=== PATIENT | female | born 1975 | race African-American/Black ===

== ENCOUNTER 2016-11-16 10:34 | Emergency (ER) | payer MEDICAID ==
[~2016-11-16] VITALS: Ht 162.6 cm; Wt 117.9 kg
[2016-11-16 11:23] LABS: Urine Bilirubin Negative (Negative); Urine Blood Negative /uL (Negative); Urine Color Yellow (Yellow); Urine Glucose Normal (Normal); Urine Ketone Negative (Negative); Urine Nitrite Negative (Negative); Urine RBC <1 /hpf (0 - 4); Urine Squamous Epithelial Cell FEW /hpf (<5); Urine Urobilinogen Normal (Negative); Urine pH 5.5 (5.0-8.0)
[2016-11-16 11:28] LABS: Basophils # (auto) 0.1 uL; Basophils % (auto) 0.5 % (0.0-2.0); DEFINITIVE VIEW TRANSMISSION; Eosinophils # (auto) 0.2 uL; Eosinophils % (auto) 1.8 % (0.0-7.0); Hemoglobin 8.7 g/dL (12.2-16.2); Lymphocytes # (auto) 2.3 uL; Lymphocytes % (auto) 24.5 % (10.0-50.0); Mean Corpuscular Hemoglobin 24.7 pg (28.0-32.0); Mean Corpuscular Hgb Conc. 31.1 g/dL (32.0-36.0); Mean Corpuscular Volume 79.4 fL (80.0-100.0); Mean Platelet Volume 8.1 fL (7.4-10.4); Monocytes # (auto) 0.5 uL; Monocytes % (auto) 4.9 % (0.0-12.0); Neutrophils # (auto) 6.4 uL; Neutrophils % (auto) 68.3 % (37.0-80.0); Platelet Count (auto) 382 10^3/uL (140-450); SUSPECT VIEW TRANSMISSION; White Blood Cell 9.4 10^3/uL (4.4-10.8)
[2016-11-16 11:48] LABS: Albumin 3.6 g/dL (3.4-5.0); Alkaline Phosphatase 157 U/L (45-117); Anion Gap 12 (5-15); Aspartate Aminotransferase 33 U/L (15-37); BUN/Creatinine Ratio 11.6; Bilirubin, Total 0.8 mg/dL (0.2-1.0); Blood Urea Nitrogen 13 mg/dL (7-18); Carbon Dioxide 24 mmol/L (21-32); Chloride 103 mmol/L (98-107); GFR African American 68 mL/min; GFR Non-African American 56 mL/min; Glucose 114 mg/dL (74-106); Potassium 3.7 mmol/L (3.5-5.1); Sodium 139 mmol/L (136-145); Total Protein 7.8 g/dL (6.4-8.2)
[2016-11-16] MEDS ORDERED: ALPRAZolam 0.5 MG TAB PO ONE (12:00)
[2016-11-16 12:14] LABS: Platelet Estimate Adequate
[2016-11-16 12:15] LABS: Anisocytosis Moderate; Hypochromia Slight; Large Platelets FEW; Ovalocytes FEW; Stomatocytes Moderate
[2016-11-16 12:29] LABS: Acetaminophen < 2.0 ug/mL (10-30); Salicylate < 1.7 mg/dL (2.8-20.0)
[2016-11-16] MEDS ORDERED: cloNIDine HCL 0.1 MG TAB PO ONE (17:45)
[2016-11-16] MEDS: ZOLPIDEM TARTRATE 5 MG TAB PO SCH (21:21)
[2016-11-17] MEDS ORDERED: IBUPROFEN 600 MG TAB PO ONE (07:27)
[2016-11-17] MEDS ORDERED: IBUPROFEN 600 MG TAB PO PRN ×2 (07:30→12:01)
[2016-11-17] MEDS: amLODIPine BESYLATE 5 MG TAB PO SCH (10:00)
[2016-11-17] MEDS: LOSARTAN POTASSIUM 50 MG TAB PO SCH (10:00)
[2016-11-17] MEDS ORDERED: CYCLOBENZAPRINE HCL 10 MG TAB ONE (11:28)
[2016-11-17] MEDS ORDERED: SERTRALINE HCL 50 MG TAB ONE (11:29)
[2016-11-17] MEDS ORDERED: CYCLOBENZAPRINE HCL 10 MG TAB PO ONE (11:30)
[2016-11-17] MEDS ORDERED: SERTRALINE HCL 50 MG TAB PO ONE (11:30)
[2016-11-17] MEDS ORDERED: ACETAMINOPHEN 325 MG TAB PO ONE (12:00)
[2016-11-17] MEDS ORDERED: ACETAMINOPHEN 325 MG TAB PO PRN (12:00)
[2016-11-17] MEDS: ALPRAZolam 0.5 MG TAB PO PRN (18:16)
[2016-11-17] MEDS: ZOLPIDEM TARTRATE 5 MG TAB PO SCH (22:00)
[2016-11-18] MEDS: CYCLOBENZAPRINE HCL 10 MG TAB PO SCH (10:00)
[2016-11-18] MEDS: amLODIPine BESYLATE 5 MG TAB PO SCH (10:00)
[2016-11-18] MEDS: LOSARTAN POTASSIUM 50 MG TAB PO SCH (10:00)
[2016-11-18] MEDS: SERTRALINE HCL 50 MG TAB PO SCH (11:06)
[2016-11-18 12:36] LABS: Basophils # (auto) 0 uL; Basophils % (auto) 0.6 % (0.0-2.0); DEFINITIVE VIEW TRANSMISSION; Eosinophils # (auto) 0.2 uL; Eosinophils % (auto) 3.6 % (0.0-7.0); Hematocrit 25.8 % (36.0-46.0); Lymphocytes # (auto) 1.6 uL; Lymphocytes % (auto) 27.6 % (10.0-50.0); Mean Corpuscular Volume 80.8 fL (80.0-100.0); Mean Platelet Volume 7.8 fL (7.4-10.4); Monocytes # (auto) 0.5 uL; Monocytes % (auto) 8.9 % (0.0-12.0); Neutrophils # (auto) 3.4 uL; Neutrophils % (auto) 59.3 % (37.0-80.0); Platelet Count (auto) 378 10^3/uL (140-450); SUSPECT VIEW TRANSMISSION; White Blood Cell 5.8 10^3/uL (4.4-10.8)
[2016-11-18 12:59] LABS: BUN/Creatinine Ratio 12.9; Bilirubin, Total 0.4 mg/dL (0.2-1.0); Calcium 8.5 mg/dL (8.5-10.1); Potassium 3.9 mmol/L (3.5-5.1); Total Protein 6.6 g/dL (6.4-8.2)
[2016-11-18 13:01] LABS: Red Cell Distribution Width 26.5 % (11.6-16.0)
[2016-11-18 13:46] LABS: Platelet Estimate Adequate
[2016-11-18 13:47] LABS: Anisocytosis Moderate; Hypochromia Slight
[2016-11-18] MEDS: FERROUS SULFATE 325 MG TAB PO SCH (16:09)
[2016-11-18] MEDS: ALPRAZolam 0.5 MG TAB PO PRN (16:13)
[2016-11-18] MEDS: ZOLPIDEM TARTRATE 5 MG TAB PO SCH (23:09)
[2016-11-18] MEDS ORDERED: ZOLPIDEM TARTRATE 5 MG TAB ONE (23:12)
[2016-11-19 09:49] VITALS: BP 136/80
[2016-11-19] MEDS ORDERED: LOSARTAN POTASSIUM 50 MG TAB ONE (10:08)
[2016-11-19] MEDS ORDERED: amLODIPine BESYLATE 5 MG TAB ONE (10:08)
[2016-11-19] MEDS ORDERED: FERROUS SULFATE 325 MG TAB PO ONE (10:08)
[2016-11-19] MEDS ORDERED: CYCLOBENZAPRINE HCL 10 MG TAB ONE (10:08)
[2016-11-19] MEDS ORDERED: SERTRALINE HCL 50 MG TAB ONE (10:10)
[2016-11-19] MEDS: FERROUS SULFATE 325 MG TAB PO SCH (10:26)
[2016-11-19] MEDS: CYCLOBENZAPRINE HCL 10 MG TAB PO SCH (10:26)
[2016-11-19] MEDS: SERTRALINE HCL 50 MG TAB PO SCH (10:26)
[2016-11-19] MEDS: LOSARTAN POTASSIUM 50 MG TAB PO SCH (10:26)
[2016-11-19] MEDS: amLODIPine BESYLATE 5 MG TAB PO SCH (10:27)
[2016-11-19] MEDS ORDERED: ALPRAZolam 0.5 MG TAB ONE (14:05)
[2016-11-19] MEDS: ALPRAZolam 0.5 MG TAB PO PRN (14:12)
== END 2016-11-19 03:02 | disposition home or self-care (01) ==
LOC: ER 10:41
DX: R45.851 Suicidal ideations (principal); F32.9 Major depressive disorder, single episode, unspecified; F41.0 Panic disorder [episodic paroxysmal anxiety]; D50.9 Iron deficiency anemia, unspecified; I12.9 Hypertensive chronic kidney disease with stage 1 through stage 4 chronic kidney disease, or unspecified chronic kidney disease; N18.9 Chronic kidney disease, unspecified; Z90.49 Acquired absence of other specified parts of digestive tract
CPT/HCPCS: 36415; 71010; 80053; 80329; 81001; 81025; 83735; 84484; 85025; 93005; 94761; 99285; G0434